=== PATIENT | male | born 1995 | race Caucasian/White ===

== ENCOUNTER 2017-06-11 06:38 | Emergency (ER) | payer SELFPAY ==
[~2017-06-11] VITALS: Ht 175.3 cm; Wt 81.5 kg
[2017-06-11 06:56] VITALS: BP 164/95
== END 2017-06-11 07:43 | disposition left against medical advice (07) ==
LOC: EMS 06:40
DX: K08.89 Other specified disorders of teeth and supporting structures (principal); Z53.21 Procedure and treatment not carried out due to patient leaving prior to being seen by health care provider